=== PATIENT | male | born 1965 | race Caucasian/White ===

== ENCOUNTER 2016-08-10 12:03 | Day surgery (SDC) | payer OTHER ==
[~2016-08-10] VITALS: Ht 172.7 cm; Wt 68.6 kg
[2016-08-10] MEDS ORDERED: MIDAZOLAM 1 MG/ML 2 ML INJ ONE ×3 (14:09→15:10)
[2016-08-10] MEDS ORDERED: XANAX (14:22)
[2016-08-10] MEDS ORDERED: NORVIR (14:22)
[2016-08-10] MEDS ORDERED: TRUVADA (14:22)
[2016-08-10] MEDS ORDERED: PREZISTA (14:22)
[2016-08-10 14:24] VITALS: Ht 172.7 cm; Wt 68.6 kg
[2016-08-10] MEDS ORDERED: FENTAnyl 50 MCG/ML VIAL ONE (15:05)
[2016-08-10] MEDS ORDERED: PROPOFOL 40 ML ONE (15:05)
[2016-08-10 15:12] VITALS: BP 138/87; PULSE 82; RESP 20
--- NOTE | 2016-08-10 15:43 | GILP ---
DATE OF PROCEDURE: PROCEDURE: Colonoscopy to cecum. BRIEF HISTORY AND INDICATIONS: The patient here for colorectal cancer screening. He has comorbidit ies including HIV infection with no complications at the present time. PREMEDICATION: Monitored anesthesia care by anesthesiologist. SURGEON: Genoveva Velásquez MD INSTRUMENT USED: Olympus colonoscope. PREPARATION: Was adequate. TECHNIQUE: After informed consent, with the patient/relatives understanding the procedure, its indic ations potential risks and complications, including but not limited to: allergic reaction, bleeding, perforation, infection, missed lesions and after all pertinent questions were answered to the patie nt's satisfaction, the patient/relatives signed the witnessed informed consent. Following this, premedication was administered slowly IV push by under careful cardiovascular and re spiratory monitoring with pulse oximetry, automatic blood pressure and script editor. Once the sedativ e effect was achieved, the patient was placed in the left lateral decubitus position, digital rectal examination was performed. The colonoscope was then introduced and advanced under visual control th roughout all segments of the colon including: the rectum, sigmoid, descending colon, splenic flexure , transverse colon, hepatic flexure, ascending colon and finally reaching the cecum which was clearl y identified by transillumination, finger indentation and the ileocecal valve. Careful examination o f the mucosa of the lower gastrointestinal tract both on insertion as well as withdrawal of the inst rument disclosed the following findings: The instrument was then withdrawn, the patient tolerated the procedure well and was transferred out of the Endoscopy Suite awake and in good condition to continue recovery under observation. Rectal: Decreased sphincter tone is present, otherwise no perianal pathology. Colonic Mucosa: The colonic mucosa is unremarkable. The ileocecal valve was clearly identified and appears unremarkable. Instrument was withdrawn. On withdrawal of the instrument, no additional ab normalities are noted with exception of moderate sized internal hemorrhoids. IMPRESSION: Moderate sized internal hemorrhoids, otherwise normal colonic mucosa to cecum. PLAN: The patient will follow up as an outpatient. Annual Hemoccult stool testing is recommended a nd colonoscopy in 10 years is recommended. Dictated By: GENOVEVA VELÁSQUEZ MS/ELENI Conf#: [id number] DID#: [id number]
[2016-08-10 16:00] VITALS: BP 115/87; PULSE 69; RESP 20
== END 2016-08-10 16:17 | disposition home or self-care (01) ==
LOC: GIL 12:03
PROVIDERS: ATTEND Internal Medicine Gastroenterology
DX: Z12.11 Encounter for screening for malignant neoplasm of colon (principal); K64.8 Other hemorrhoids
CPT/HCPCS: 45378; J2250; J3010; Z7610